=== PATIENT | male | born 1940 | race Hispanic/Latino ===

== ENCOUNTER 2018-04-04 12:35 | Emergency (ER) | payer OTHER ==
[~2018-04-04] VITALS: Ht 165.1 cm; Wt 76.7 kg
[2018-04-04] MEDS ORDERED: ASPIRIN 81 MG CHEW TAB PO ONE ×2 (13:30→16:15)
[2018-04-04 13:35] LABS: BASOPHILS % 0.5 % (0.0-1.0); EOSINOPHILS # (AUTO) 0.1 (0.0-0.4); EOSINOPHILS % 1.1 % (0.0-6.0); HEMOGLOBIN 14.3 g/dL (14.0-18.0); LYMPHOCYTES # (AUTO) 2.1 (1.0-3.2); LYMPHOCYTES % 26.2 % (18.0-39.1); MEAN CORPUSCULAR HEMOGLOBIN 31.2 pg (28-32); MEAN CORPUSCULAR HGB CONC 34.9 g/dL (31-35); MEAN CORPUSCULAR VOLUME 89.3 fL (81-99); MONOCYTES # (AUTO) 0.7 (0.2-0.8); MONOCYTES % 8.8 % (4.4-11.3); PLATELET COUNT 209 x10e3/uL (140-360); RED BLOOD COUNT 4.59 x10e6/uL (4.3-5.7); RED CELL DISTRIBUTION WIDTH 12.8 % (11.7-14.4)
[2018-04-04 13:46] LABS: ALANINE AMINOTRANSFERASE 17 IU/L (0-55); ALBUMIN 4.2 g/dL (3.5-5.0); ALBUMIN/GLOBULIN RATIO 1.1 (0.8-2.0); ALKALINE PHOSPHATASE 47 IU/L (40-150); ANION GAP 15.4 mmol/L (8-16); BLOOD UREA NITROGEN 15 mg/dL (7-26); BUN/CREATININE RATIO 19 (6-25); CALCIUM 9.7 mg/dL (8.4-10.2); CARBON DIOXIDE 26 mmol/L (22-29); CHLORIDE 98 mmol/L (98-107); CREATINE KINASE 117 IU/L (30-200); CREATININE, SERUM 0.81 mg/dL (0.72-1.25); EST GLOMERULAR FILTRATION RATE > 60 ML/MIN (60-); GLUCOSE 95 mg/dL (74-118); POTASSIUM 3.4 mmol/L (3.5-5.1); SODIUM 136 mmol/L (136-145)
[2018-04-04 15:52] LABS: BILIRUBIN,URINE NEGATIVE (NEGATIVE); CLARITY,URINE SL CLOUDY (CLEAR); COLOR,URINE YELLOW (YELLOW); KETONES,URINE TRACE (NEGATIVE); LEUKOCYTE ESTERASE ,URINE NEGATIVE (NEGATIVE); NITRITE,URINE NEGATIVE (NEGATIVE); PROTEIN,URINE DIPSTICK NEGATIVE (NEGATIVE); URINE UROBILINOGEN 0.2 mg/dL (0.2 - 1)
--- NOTE | 2018-04-04 16:52 | Diagnostic Imaging Report ---
Frontal and lateral views of the chest. HISTORY: Chest pain COMPARISON: None available. DISCUSSION: Lungs: The lungs are well inflated. No evidence of a consolidative pneumonia or pulmonary alveolar edema. Pleura: No pleural effusion or pneumothorax. Heart and mediastinum: The cardiomediastinal silhouette appears unremarkable. Bones: No acute radiographic abnormality. 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 Mild to moderate multilevel degenerative disc changes of the thoracic spine. IMPRESSION: No acute radiographic abnormality. Signed by: Dr. Jose Elias Adkins D.O., M.M.M. on 04/04/2018 4:49 PM
[2018-04-04 17:04] VITALS: BP 152/78
== END 2018-04-04 17:06 | disposition home or self-care (01) ==
LOC: ER 12:35
DX: R07.89 Other chest pain (principal)
CPT/HCPCS: 36415; 71046; 80053; 81001; 82550; 82553; 84484; 85025; 93005; 99283

== ENCOUNTER 2022-02-25 12:19 | Emergency (ER) | payer MEDICARE, OTHER ==
[~2022-02-25] VITALS: Ht 165.1 cm; Wt 74.1 kg
[2022-02-25] MEDS ORDERED: SODIUM CHLORIDE 0.9% 500ML 500 ML IV STA (12:29)
[2022-02-25] MEDS ORDERED: IBUPROFEN 200 MG TAB PO ONE (12:30)
[2022-02-25] MEDS ORDERED: ACETAMINOPHEN 325 MG TAB PO ONE (12:30)
[2022-02-25] MEDS ORDERED: IBUPROFEN 600 MG TAB ONE (12:53)
[2022-02-25] MEDS ORDERED: ACETAMINOPHEN 325 MG TAB ONE (12:54)
[2022-02-25] MEDS ORDERED: SODIUM CHLORIDE 0.9% 500ML 500 ML ONE (12:54)
[2022-02-25] MEDS ORDERED: TAMIFLU75 MG PO (13:09)
[2022-02-25] MEDS ORDERED: IBUPROFEN200 MG PO (13:09)
[2022-02-25] MEDS ORDERED: ACETAMINOPHEN500 MG PO (13:09)
[2022-02-25 13:42] VITALS: BP 128/59
== END 2022-02-25 13:43 | disposition home or self-care (01) ==
LOC: FSED 12:28
DX: R50.9 Fever, unspecified (principal); J10.1 Influenza due to other identified influenza virus with other respiratory manifestations; R53.1 Weakness; I10 Essential (primary) hypertension; R53.81 Other malaise; R53.83 Other fatigue; R94.31 Abnormal electrocardiogram [ECG] [EKG]
CPT/HCPCS: 71046; 80053; 81003; 82553; 83518; 84484; 85025; 87400; 93005; 96374; 99284; J7040

== ENCOUNTER 2024-01-10 13:47 | Emergency (ER) | payer MEDICARE ==
[~2024-01-10] VITALS: Ht 165.1 cm; Wt 71.5 kg
[~2024-01-10 13:47] MED LIST: ACETAMINOPHEN500 MG PO; IBUPROFEN200 MG PO; TAMIFLU75 MG PO
[2024-01-10] MEDS: ACETAMINOPHEN 325 MG TAB PO ONE (14:29)
[2024-01-10] MEDS ORDERED: DEXAMETHASONE PHOS 4MG/ML 5ML MULTIDOSE VIAL IV ONE (15:15)
[2024-01-10] MEDS: SODIUM CHLORIDE 0.9% 1000ML 1,000 ML IV STA (15:27)
[2024-01-10 15:28] VITALS: PULSE 69; RESP 16
[2024-01-10] MEDS: ALBUTEROL/IPRATROPIUM 3 ML NEB NEB ONE (15:28)
[2024-01-10] MEDS: DEXAMETHASONE SOD PHOS INJ 4 MG/ML SDV IV ONE (16:18)
[2024-01-10 16:19] VITALS: PULSE 71; RESP 16; TEMP 99.6; O2SAT 99
[2024-01-10] MEDS ORDERED: FLOMAX0.4 MG PO (16:20)
[2024-01-10] MEDS ORDERED: LOSARTAN-HCTZ1 EAC2 (16:20)
[2024-01-10] MEDS ORDERED: PAXLOVID 300-11 EAC1 PO (16:26)
[2024-01-10] MEDS ORDERED: CETIRIZINE HCL10 MG PO (16:27)
[2024-01-10] MEDS ORDERED: MUCINEX DM ER1 EACH PO (16:30)
[2024-01-10] MEDS ORDERED: VENTOLIN HFA18 GM INH (16:30)
== END 2024-01-10 16:40 | disposition home or self-care (01) ==
LOC: FSED 13:53
DX: R50.9 Fever, unspecified (principal); J06.9 Acute upper respiratory infection, unspecified; R05.9 Cough, unspecified; I10 Essential (primary) hypertension; N40.0 Benign prostatic hyperplasia without lower urinary tract symptoms; Z11.52 Encounter for screening for COVID-19
CPT/HCPCS: 0223U; 71046; 83518; 87400; 96374; 99284; J1100; J7030